=== PATIENT | female | born 1960 | race Caucasian/White ===

== ENCOUNTER 2021-12-10 06:22 | Inpatient (IN) | payer BC ==
[~2021-12-10] VITALS: Ht 165.1 cm; Wt 59.9 kg
[2021-12-10] MEDS ORDERED: IV NORMAL SALINE 1000 ML BAG IV ONE ×2 (06:45→10:00)
[2021-12-10 06:54] LABS: HEMATOCRIT 39.3 % (31.2-41.9); MEAN CORPUSCULAR HEMOGLOBIN 31.9 uug (24.7-32.8); MEAN CORPUSCULAR VOLUME 95.2 fL (75.5-95.3); PLATELET COUNT (AUTO) 352 K/uL (179-408)
[2021-12-10 07:10] LABS: CARBON DIOXIDE 23 mmol/L (21-32); CHLORIDE 102 mmol/L (98-107); CREATININE 1.1 mg/dL (0.6-1.3); GLUCOSE 167 mg/dL (74-106); POTASSIUM 4.2 mmol/L (3.5-5.1); UREA NITROGEN, BLOOD 18 mg/dL (7-18)
--- NOTE | 2021-12-10 07:17 | NUR ---
Received pt. coming back from CT head. AAOx4. Vitals of: NSR 84, 116/81, 94% on RA. at bedside. And at bedside discussing care plan with both pt. and .
[2021-12-10 07:26] LABS: ALANINE AMINOTRANSFERASE 29 U/L (14-59); ALKALINE PHOSPHATASE 80 U/L (50-136); ASPARTATE AMINOTRANSFERASE 19 U/L (15-37); BILIRUBIN,DIRECT 0.1 mg/dL (0.0-0.2); BILIRUBIN,TOTAL 0.3 mg/dL (0.2-1.0); TOTAL PROTEIN, SERUM 7.3 g/dL (6.4-8.2)
--- NOTE | 2021-12-10 07:48 | NUR ---
Due to periods of saturation down to the 89-90% pt. place on 2LNC. aware.
--- NOTE | 2021-12-10 08:38 | NUR ---
at bedside updating pt's daughter.
[2021-12-10] MEDS ORDERED: IV NORMAL SALINE 250 ML IV ONE (09:12)
[2021-12-10] MEDS ORDERED: IOHEXOL 350 100 ML INFUS..BTL ONE (09:12)
[2021-12-10] MEDS ORDERED: SWABABLE VALVE TRANSFER SET EA MC ONE (09:12)
[2021-12-10] MEDS ORDERED: ACETAMINOPHEN ES 500 MG TABLET PO ONE (09:15)
--- NOTE | 2021-12-10 09:25 | NUR ---
pt. taken down to CTA ches/brain.
[2021-12-10] MEDS ORDERED: ACETAMINOPHEN ES 500 MG TABLET ONE (09:36)
--- NOTE | 2021-12-10 09:52 | NUR ---
Patient back from CT.
[2021-12-10 10:45] LABS: *BILIRUBIN,URIN NEGATIVE (NEGATIVE); *CLARITY,URINE CLEAR (CLEAR); *COLOR,URINE YELLOW (YELLOW); *KETONES,URINE NEGATIVE (NEGATIVE); *UROBILINOGEN,URINE 0.2 E.U./dl (NORMAL); LEUKOCYTE ESTERASE ,URINE NEGATIVE (NEGATIVE); NITRITE, URINE NEGATIVE (NEGATIVE); UGLUCOSE NEGATIVE (NEGATIVE)
[2021-12-10 10:46] LABS: *BLOOD, URINE TRACE (NEGATIVE)
--- NOTE | 2021-12-10 11:21 | NUR ---
PAtient taken up to room 316 via rney vitals stable NSR rate 79 131/69.
[2021-12-10 11:25] VITALS: BP 121/74
--- NOTE | 2021-12-10 12:00 | NUR ---
Received report from ANNETTE Cueto.
--- NOTE | 2021-12-10 12:10 | NUR ---
Patient arrived on unit empty 1000mL bag of Normal Saline. Documenting in [facility] to see nurses notes for reassessment.
[2021-12-10] MEDS ORDERED: ONDANSETRON 4 MG/2 ML VIAL IV PRN (12:30)
[2021-12-10] MEDS ORDERED: LORAZEPAM 2 MG/1 ML VIAL IV PRN (12:30)
[2021-12-10] MEDS ORDERED: MAGNESIUM HYDROXIDE 30 ML LIQUID UDC PO PRN (12:30)
[2021-12-10] MEDS ORDERED: TEMAZEPAM 15 MG CAPSULE PO PRN (12:30)
[2021-12-10] MEDS: ACETAMINOPHEN 325 MG TABLET PO PRN (13:39)
[2021-12-10 13:59] LABS: BACTERIA,URINE NONE SEEN /HPF (NONE SEEN); RBC,URINE 0-3 /HPF (0-3); SQUAMOUS EPITHELIAL CELL,UR FEW /HPF (NONE SEEN)
[2021-12-10 15:55] VITALS: BP 125/73
--- NOTE | 2021-12-10 17:28 | NUR ---
Patient to have MRI BRAIN WITH/WITHOUT CONTRAST. Consent obtained. Questionnaire filled out. Will endorse to PM nurse.
[2021-12-10] MEDS: levETIRAcetam 500 MG TABLET PO SCH (20:39)
--- NOTE | 2021-12-11 05:59 | NUR ---
No seizure activity this shift. Patient slept well, tossing and turning. Noted 02 sats to drop to 89-91% when asleep, and increased to 92-95% when woken up and asked to deep breath. patient states she is a smoker and has had a lingering cough since she had COVID in 2019. Will endorse to day shift for follow up.
[2021-12-11] MEDS ORDERED: PANTOPRAZOLE SODIUM 40 MG TABLET.DR PO SCH (07:00)
[2021-12-11 07:15] LABS: HEMATOCRIT 37.1 % (31.2-41.9); MEAN CORPUSCULAR HEMOGLOBIN 31.4 uug (24.7-32.8); MEAN CORPUSCULAR VOLUME 93.8 fL (75.5-95.3); PLATELET COUNT (AUTO) 329 K/uL (179-408)
[2021-12-11] MEDS: levETIRAcetam 500 MG TABLET PO SCH (08:00)
[2021-12-11] MEDS: ACETAMINOPHEN 325 MG TABLET PO PRN (08:04)
[2021-12-11 08:14] LABS: BILIRUBIN,TOTAL 0.4 mg/dL (0.2-1.0); CREATININE 0.8 mg/dL (0.6-1.3); MAGNESIUM 2.3 mg/dL (1.8-2.4); PHOSPHOROUS 2.1 mg/dL (2.5-4.9); TOTAL PROTEIN, SERUM 6.4 g/dL (6.4-8.2)
--- NOTE | 2021-12-11 08:26 | NUR ---
TEXT SAW SETTER (ESPERANZA) THE REQUISITION AT 6.03AM NO RESPONSE YET.
--- NOTE | 2021-12-11 08:32 | NUR ---
MRI REQUISITION WAS TEXT TO ESPERANZA AT 0533 AM
[2021-12-11 08:56] LABS: THYROID STIMULATING HORMONE 1.206 mIU/mL (0.358-3.740)
[2021-12-11] MEDS ORDERED: NEUTRA PHOS PACKET PO ONE (09:30)
[2021-12-11 10:59] VITALS: BP 115/69
--- NOTE | 2021-12-11 12:16 | NUR ---
Patient left with ambulance to [place] for MRI BRAIN WWO CONTRAST. IV site patent.
--- NOTE | 2021-12-11 13:40 | NUR ---
Patient returned from [place].
--- NOTE | 2021-12-11 14:02 | NUR ---
Spoke to patient about home meds. Spoke to Pharmacy.
[2021-12-11] MEDS ORDERED: ASPI81TA31 PO (14:06)
[2021-12-11] MEDS ORDERED: LORA10TA7 PO (14:06)
[2021-12-11 15:28] VITALS: BP 120/75
[2021-12-11] MEDS ORDERED: LEVE500T9 PO (17:17)
[2021-12-11] MEDS ORDERED: ATOR20TA PO (17:17)
--- NOTE | 2021-12-11 18:15 | NUR ---
Patient discharged from unit at 1810. IV site removed. ID badge removed. Discharge education provided.
[2021-12-11] MEDS ORDERED: ATORVASTATIN 20 MG TABLET PO SCH (21:00)
== END 2021-12-11 18:10 | disposition home or self-care (01) | DRG 101 ==
LOC: ER 06:32 → TELE3 10:40
PROVIDERS: ADMIT Internal Medicine; ATTEND Internal Medicine
DX: G40.909 Epilepsy, unspecified, not intractable, without status epilepticus (principal); E78.5 Hyperlipidemia, unspecified; E83.39 Other disorders of phosphorus metabolism; F17.210 Nicotine dependence, cigarettes, uncomplicated; I70.0 Atherosclerosis of aorta; Z20.822 Contact with and (suspected) exposure to COVID-19; Z82.49 Family history of ischemic heart disease and other diseases of the circulatory system; Z82.3 Family history of stroke; Z86.16 Personal history of COVID-19; R90.89 Other abnormal findings on diagnostic imaging of central nervous system
CPT/HCPCS: 36415; 70450; 70496; 70551; 71045; 71275; 83735; 84100; 84443; 84484; 85025; 85730; 93005; 93880; A4663; A9150; G0378; J7030; J7050; Q9967